=== PATIENT | female | born 1990 | race American Indian/Alaskan Native ===

== ENCOUNTER 2016-09-01 03:48 | Outpatient (CLI) | payer MEDICAID, MEDICARE ==
[2016-09-01 04:04] VITALS: BP 106/66
[2016-09-01] MEDS ORDERED: LACTATED RINGERS 1,000 ML IV ONE (04:25)
[2016-09-01 05:13] LABS: Bilirubin,Urine NEG (Negative); Blood,Urine NEG (Negative); Ketones,Urine NEG (Negative); Leukocyte Esterase,Urine NEG (Negative); Mucus,Urine FEW /HPF; Nitrite,Urine NEG (Negative); Protein,Urine <15 mg/dL mg/dL (Negative); Urobilinogen,Urine < 2.0 mg/dL (<2.0)
== END 2016-09-01 05:31 | disposition home or self-care (01) ==
LOC: TRG 03:48
PROVIDERS: ATTEND Obstetrics & Gynecology
DX: O47.02 False labor before 37 completed weeks of gestation, second trimester (principal); Z3A.27 27 weeks gestation of pregnancy
CPT/HCPCS: 81001

== ENCOUNTER 2016-09-02 11:24 | Outpatient (CLI) | payer MEDICAID, MEDICARE ==
[2016-09-02] MEDS ORDERED: LACTATED RINGERS 500 ML IV ONE (12:00)
[2016-09-02] MEDS ORDERED: BRETHINE SUB-Q SCH (12:00)
[2016-09-02 12:17] VITALS: BP 102/53
== END 2016-09-02 13:22 | disposition home or self-care (01) ==
LOC: TRG 11:24
PROVIDERS: ATTEND Obstetrics & Gynecology Gynecology
DX: O47.02 False labor before 37 completed weeks of gestation, second trimester (principal); Z3A.27 27 weeks gestation of pregnancy
CPT/HCPCS: 36415; 59025; 82731

== ENCOUNTER 2016-09-16 02:15 | Observation (INO) | payer MEDICAID, MEDICARE ==
[2016-09-16 03:23] LABS: Bacteria,Urine 1+ /HPF (Negative); Bilirubin,Urine NEG (Negative); Blood,Urine NEG (Negative); Ketones,Urine NEG (Negative); Leukocyte Esterase,Urine MOD (Negative); Mucus,Urine FEW /HPF; Nitrite,Urine NEG (Negative); Protein,Urine <15 mg/dL mg/dL (Negative)
--- NOTE | 2016-09-16 03:49 | History and Physical Report ---
History of Present Illness Date of examination: 09/16/16 Date of admission: 09/16/16 03:43 Chief complaint: Lower back pain and vaginal pressure History of present illness: 26-year-old at 29+5 weeks presents with above complaints and issues, she is [facility] patient. Essential history this patient with late presentation to care at about 25wks. She has been having low back pain for a while now. No vaginal bleeding, loss of fluid plus movement We are currently not picking up any contractions on the monitor, but patient does appear symptomatic for regular frequent low back pains. Vaginal ultrasound in triage has cervical length 1.8, breech presentation Past History Past Medical History: asthma (mild) Past Surgical History: no surgical history [employer] History: chlamydia (recent episode with negative test of cure). denies: gonorrhea, hepatitis B, hepatitis C, herpes, HIV, syphilis, trichomonas Social history: single, full code. denies: smoking, alcohol abuse, prescription drug abuse, IV drug use - Obstetrical History Expected Date of Delivery: 11/27/16 Actual Gestation: 29 Week(s) 5 Day(s) : 8 Para: 5 Hx # Term Pregnancies: 5 Medications and Allergies Allergies Allergy/AdvReac Type Severity Reaction Status Date / Time ibuprofen [From Advil] Allergy Swelling Verified 09/01/16 04:05 Home Medications Medication Instructions Recorded Confirmed Last Taken Type No Known Home Medications [No 09/02/16 09/02/16 Unknown History Reported Home Medications] Review of Systems Constitutional: no fever, no chills, no malaise, no chronic headaches, no chronic pain Cardiovascular: no chest pain, no orthopnea, no syncope, no lightheadedness, no shortness of breath, no dyspnea on exertion, no high blood pressure Respiratory: no cough with sputum, no excessive sputum, no shortness of breath, no dyspnea on exertion Gastrointestinal: abdominal pain (low back pain), no nausea, no vomiting, no heartburn, no indigestion, no dyspepsia/bloating Genitourinary: no vaginal bleeding, no vaginal discharge, no leakage of fluid Musculoskeletal: low back pain - Vital Signs Vital signs: Vital Signs Temp 98.2 F 09/16/16 02:59 Temp Pulse Resp BP Pulse Ox 98.2 F 09/16/16 02:59 - Physical Exam Cardiovascular: Regular rate, Normal S1, Normal S2 Lungs: Positive: Clear to auscultation, Normal air movement Abdomen: Positive: normal appearance, soft. Negative: distention, tenderness, guarding, rigidity Genitourinary (Female): Positive: normal external genitalia Uterus: Positive: enlarged (EFW ~ 2500). Negative: tender Adnexa: both: normal Extremities: Positive: normal - Obstetrical Cervical Dilatation: 1 (RN Exam) station: -3 Results All other labs normal. Assessment and Plan A: 26-year-old at 29+5 weeks with contractions -Cat 1 tracing Issues -AMA -Breech presentation -Late entry to care P: -Admit -Routine labs -FFN now -Consider Celestone if fibronectin positive -UDS -Magnesium per protocol at this time -Nothing by mouth for now -BPP and Growth later in AM -Consider MFM consult after FFN result available - Patient Problems (1) 29 to 30 weeks gestation of Current Visit: Yes Status: Acute (2) contractions Current Visit: Yes Status: Acute (3) Short cervical length during in third trimester Current Visit: Yes Status: Acute
[2016-09-16] MEDS ORDERED: COLACE PO PRN (03:55)
[2016-09-16] MEDS ORDERED: ZOFRAN IV PRN (03:55)
[2016-09-16] MEDS ORDERED: ALUM-MAG HYDROX-SIMETH 200-200-20MG/5ML PO PRN (03:55)
[2016-09-16] MEDS ORDERED: MAGNESIUM SULFATE 4GM/100ML 4 GM/100 ML BAG IV ONE (04:00)
[2016-09-16] MEDS ORDERED: D5LR 1,000 ML IV SCH (04:00)
[2016-09-16] MEDS ORDERED: LACTATED RINGERS 1,000 ML IV SCH (04:00)
[2016-09-16] MEDS ORDERED: MAGNESIUM SULFATE 40GM/1000ML 40 GM/1,000 ML BAG IV NR (04:00)
[2016-09-16] MEDS ORDERED: SUBLIMAZE IV ONE (04:55)
[2016-09-16 05:26] LABS: Basophils % (Auto) 0.4 % (0.0-1.8); Eosinophils % (Auto) 3.3 % (0.0-4.3); Hematocrit 24.1 % (30.3-42.9); Hemoglobin 7.7 gm/dl (10.1-14.3); Mean Corpuscular HGB Conc 32 % (30-34); Mean Corpuscular Volume 73 fl (79-97); Platelet Count 248 K/mm3 (140-440); Red Blood Count 3.29 M/mm3 (3.65-5.03); Red Cell Distribution Width 15.6 % (13.2-15.2); White Blood Count 6.6 K/mm3 (4.5-11.0)
[2016-09-16 05:48] LABS: Mean Corpuscular Hemoglobin 23 pg (28-32)
[2016-09-16 06:46] LABS: Urine Drugs of Abuse Note Disclamer
[2016-09-16] MEDS ORDERED: PRENATAL VITAMIN PO SCH (10:00)
[2016-09-16] MEDS ORDERED: FEOSOL PO SCH (10:00)
[2016-09-16] MEDS: TYLENOL PO PRN ×2 (10:46→16:37)
--- NOTE | 2016-09-16 10:58 | Progress Note ---
Assessment and Plan A: 26-year-old at 29+6 weeks with low back pain ?Ctx's -FFN negative Issues -Breech presentation -Late entry to care -BPP 11/07 (09/15/16) -Growth scan wnl (09/15/16) -On magnesium -Anemia (H/H ~ 11/23) P: -Urine culture now -Will discontinue magnesium at this time -No need for Celestone at this time -Start ferrous sulfate 325 mg twice a day -Regular diet -Encourage ambulation -Repeat cervical length later in the day with possible discharge - Patient Problems (1) 29 to 30 weeks gestation of Current Visit: Yes Status: Acute (2) contractions Current Visit: Yes Status: Acute (3) Short cervical length during in third trimester Current Visit: Yes Status: Acute (4) Anemia affecting in third trimester Current Visit: Yes Status: Acute Subjective - Subjective Date of service: 09/16/16 Principal diagnosis: IUP at 29+6 wks Interval history: Patient seen and examined, no issues overnight. She is still having low back pain which appears to recur in waves, cannot pick-up contraction on monitor. On exam, she has no flank tenderness, she has been afebrile. fibronectin is negative No vaginal bleeding, loss of fluid plus movement Her cervix is closed on digital exam Patient reports: new complaints, movement normal, no loss of fluid, no vaginal bleeding, no contractions Objective - Vital Signs Vital Signs: Vital Signs - 12hr 09/16/16 09/16/16 09/16/16 02:59 04:46 04:51 Temperature 98.2 F Pulse Rate 91 H 92 H Pulse Rate [ From Monitor] Respiratory Rate Blood Pressure Blood Pressure [Left Arm] O2 Sat by Pulse 98 98 Oximetry 09/16/16 09/16/16 09/16/16 04:56 04:57 05:01 Temperature Pulse Rate 102 H 88 94 H Pulse Rate [ 94 H From Monitor] Respiratory 18 Rate Blood Pressure 110/58 Blood Pressure 110/58 [Left Arm] O2 Sat by Pulse 100 98 98 Oximetry 09/16/16 09/16/16 09/16/16 05:06 05:11 05:14 Temperature Pulse Rate 106 H 114 H 94 H Pulse Rate [ From Monitor] Respiratory Rate Blood Pressure 100/55 Blood Pressure [Left Arm] O2 Sat by Pulse 99 99 Oximetry 09/16/16 09/16/16 09/16/16 05:16 05:18 05:21 Temperature Pulse Rate 84 91 H 91 H Pulse Rate [ From Monitor] Respiratory Rate Blood Pressure 90/54 Blood Pressure [Left Arm] O2 Sat by Pulse 100 89 98 Oximetry 09/16/16 09/16/16 09/16/16 05:26 05:31 05:36 Temperature Pulse Rate 93 H 97 H 80 Pulse Rate [ From Monitor] Respiratory Rate Blood Pressure 88/52 Blood Pressure [Left Arm] O2 Sat by Pulse 98 100 98 Oximetry 09/16/16 09/16/16 09/16/16 05:37 05:41 05:42 Temperature Pulse Rate 77 93 H 88 Pulse Rate [ From Monitor] Respiratory Rate Blood Pressure 97/57 95/57 Blood Pressure [Left Arm] O2 Sat by Pulse 99 Oximetry 09/16/16 09/16/16 09/16/16 05:46 05:47 05:51 Temperature Pulse Rate 88 83 101 H Pulse Rate [ From Monitor] Respiratory Rate Blood Pressure 94/60 Blood Pressure [Left Arm] O2 Sat by Pulse 100 100 Oximetry 09/16/16 09/16/16 09/16/16 05:52 05:56 05:57 Temperature 98.4 F Pulse Rate 96 H 80 77 Pulse Rate [ 78 From Monitor] Respiratory 16 Rate Blood Pressure 98/58 103/66 Blood Pressure 103/66 [Left Arm] O2 Sat by Pulse 100 100 Oximetry 09/16/16 09/16/16 09/16/16 06:01 06:02 06:06 Temperature Pulse Rate 77 74 79 Pulse Rate [ From Monitor] Respiratory Rate Blood Pressure 101/67 Blood Pressure [Left Arm] O2 Sat by Pulse 100 100 Oximetry 09/16/16 09/16/16 09/16/16 06:07 06:11 06:12 Temperature Pulse Rate 77 78 79 Pulse Rate [ From Monitor] Respiratory Rate Blood Pressure 107/66 106/64 Blood Pressure [Left Arm] O2 Sat by Pulse 100 Oximetry 09/16/16 09/16/16 09/16/16 06:16 06:17 06:21 Temperature Pulse Rate 78 82 83 Pulse Rate [ From Monitor] Respiratory Rate Blood Pressure 104/62 Blood Pressure [Left Arm] O2 Sat by Pulse 100 100 Oximetry 09/16/16 09/16/16 09/16/16 06:22 06:26 06:27 Temperature Pulse Rate 85 80 82 Pulse Rate [ From Monitor] Respiratory Rate Blood Pressure 103/61 111/67 Blood Pressure [Left Arm] O2 Sat by Pulse 100 Oximetry 09/16/16 09/16/16 09/16/16 06:31 06:32 06:36 Temperature Pulse Rate 80 80 73 Pulse Rate [ From Monitor] Respiratory Rate Blood Pressure 103/62 Blood Pressure [Left Arm] O2 Sat by Pulse 100 100 Oximetry 09/16/16 09/16/16 09/16/16 06:37 06:41 06:42 Temperature Pulse Rate 73 73 73 Pulse Rate [ From Monitor] Respiratory Rate Blood Pressure 97/59 101/60 Blood Pressure [Left Arm] O2 Sat by Pulse 100 Oximetry 09/16/16 09/16/16 09/16/16 06:46 06:47 06:51 Temperature Pulse Rate 75 75 74 Pulse Rate [ From Monitor] Respiratory Rate Blood Pressure 97/57 Blood Pressure [Left Arm] O2 Sat by Pulse 100 100 Oximetry 09/16/16 09/16/16 09/16/16 06:52 06:56 06:57 Temperature Pulse Rate 76 79 80 Pulse Rate [ From Monitor] Respiratory Rate Blood Pressure 98/58 97/60 Blood Pressure [Left Arm] O2 Sat by Pulse 100 Oximetry 09/16/16 09/16/16 09/16/16 07:01 07:02 07:06 Temperature Pulse Rate 82 79 82 Pulse Rate [ From Monitor] Respiratory Rate Blood Pressure 98/57 Blood Pressure [Left Arm] O2 Sat by Pulse 100 100 Oximetry 09/16/16 09/16/16 09/16/16 07:07 07:11 07:12 Temperature Pulse Rate 77 83 81 Pulse Rate [ From Monitor] Respiratory Rate Blood Pressure 99/55 107/61 Blood Pressure [Left Arm] O2 Sat by Pulse 100 Oximetry 09/16/16 09/16/16 09/16/16 07:16 07:17 07:21 Temperature Pulse Rate 82 81 84 Pulse Rate [ From Monitor] Respiratory Rate Blood Pressure 102/58 Blood Pressure [Left Arm] O2 Sat by Pulse 100 100 Oximetry 09/16/16 09/16/16 09/16/16 07:22 07:26 07:27 Temperature Pulse Rate 83 85 81 Pulse Rate [ From Monitor] Respiratory Rate Blood Pressure 101/59 97/56 Blood Pressure [Left Arm] O2 Sat by Pulse 100 Oximetry 09/16/16 09/16/16 09/16/16 07:31 07:32 07:36 Temperature Pulse Rate 77 80 80 Pulse Rate [ From Monitor] Respiratory Rate Blood Pressure 98/54 Blood Pressure [Left Arm] O2 Sat by Pulse 100 100 Oximetry 09/16/16 09/16/16 09/16/16 07:37 07:41 07:42 Temperature Pulse Rate 80 80 78 Pulse Rate [ From Monitor] Respiratory Rate Blood Pressure 98/54 101/61 Blood Pressure [Left Arm] O2 Sat by Pulse 100 Oximetry 09/16/16 09/16/16 09/16/16 07:46 07:47 07:50 Temperature Pulse Rate 95 H 81 96 H Pulse Rate [ From Monitor] Respiratory Rate Blood Pressure 105/61 Blood Pressure [Left Arm] O2 Sat by Pulse 98 91 Oximetry 09/16/16 09/16/16 09/16/16 07:51 07:52 07:54 Temperature Pulse Rate 86 87 85 Pulse Rate [ From Monitor] Respiratory Rate Blood Pressure 124/69 117/67 Blood Pressure [Left Arm] O2 Sat by Pulse 100 Oximetry 09/16/16 09/16/16 09/16/16 07:56 08:01 08:03 Temperature 97.2 F L Pulse Rate 100 H 85 Pulse Rate [ 86 From Monitor] Respiratory 22 Rate Blood Pressure Blood Pressure 117/67 [Left Arm] O2 Sat by Pulse 100 100 100 Oximetry 09/16/16 09/16/16 09/16/16 08:06 08:08 08:11 Temperature Pulse Rate 92 H 86 87 Pulse Rate [ From Monitor] Respiratory Rate Blood Pressure 146/84 Blood Pressure [Left Arm] O2 Sat by Pulse 100 100 Oximetry 09/16/16 09/16/16 09/16/16 08:12 08:17 08:22 Temperature Pulse Rate 79 80 75 Pulse Rate [ From Monitor] Respiratory Rate Blood Pressure 129/64 116/64 121/87 Blood Pressure [Left Arm] O2 Sat by Pulse Oximetry 09/16/16 09/16/16 09/16/16 08:27 08:32 08:38 Temperature Pulse Rate 77 78 87 Pulse Rate [ From Monitor] Respiratory Rate Blood Pressure 117/80 121/84 109/85 Blood Pressure [Left Arm] O2 Sat by Pulse Oximetry 09/16/16 09/16/16 09/16/16 08:42 08:47 08:52 Temperature Pulse Rate 80 85 82 Pulse Rate [ From Monitor] Respiratory Rate Blood Pressure 110/71 98/62 97/61 Blood Pressure [Left Arm] O2 Sat by Pulse Oximetry 09/16/16 09/16/16 09/16/16 08:57 09:02 09:07 Temperature Pulse Rate 84 83 87 Pulse Rate [ From Monitor] Respiratory Rate Blood Pressure 94/57 94/58 94/56 Blood Pressure [Left Arm] O2 Sat by Pulse Oximetry 09/16/16 09/16/16 09/16/16 09:12 09:17 10:03 Temperature Pulse Rate 90 105 H 101 H Pulse Rate [ From Monitor] Respiratory Rate Blood Pressure 94/55 92/56 104/66 Blood Pressure [Left Arm] O2 Sat by Pulse Oximetry 09/16/16 09/16/16 09/16/16 10:08 10:12 10:18 Temperature Pulse Rate 88 99 H 96 H Pulse Rate [ From Monitor] Respiratory Rate Blood Pressure 97/55 99/59 98/56 Blood Pressure [Left Arm] O2 Sat by Pulse Oximetry 09/16/16 09/16/16 09/16/16 10:23 10:28 10:33 Temperature Pulse Rate 89 83 89 Pulse Rate [ From Monitor] Respiratory Rate Blood Pressure 108/72 101/55 101/58 Blood Pressure [Left Arm] O2 Sat by Pulse Oximetry 09/16/16 09/16/16 10:39 10:43 Temperature Pulse Rate 86 91 H Pulse Rate [ From Monitor] Respiratory Rate Blood Pressure 104/62 104/59 Blood Pressure [Left Arm] O2 Sat by Pulse Oximetry - Exam Abdomen: Present: normal appearance, soft. Absent: distention, tenderness, guarding, rigidity Uterus: Present: normal. Absent: tenderness FHR: category 1 Cervical Dilatation: 0 - Labs Labs: Abnormal Labs 09/16/16 09/16/16 04:55 05:39 RBC 3.29 L Hgb 7.7 L Hct 24.1 L MCV 73 L MCH 23 L RDW 15.6 H Magnesium 3.50 H Laboratory Results - last 24 hr 09/16/16 09/16/16 09/16/16 03:35 04:55 05:02 WBC 6.6 RBC 3.29 L Hgb 7.7 L Hct 24.1 L MCV 73 L MCH 23 L MCHC 32 RDW 15.6 H Plt Count 248 Lymph % (Auto) 21.6 [place] % (Auto) 6.3 Eos % (Auto) 3.3 Baso % (Auto) 0.4 Lymph # 1.4 [place] # 0.4 Eos # 0.2 Baso # 0.0 Seg Neutrophils % 68.4 Seg Neutrophils # 4.5 Magnesium Urine Color Urine Turbidity Urine pH Ur Specific [place] Urine Protein Urine Glucose (UA) Urine Ketones Urine Blood Urine Nitrite Urine Bilirubin Urine Urobilinogen Ur Leukocyte Esterase Urine WBC (Auto) Urine RBC (Auto) U Epithel Cells (Auto) Urine Bacteria (Auto) Urine Mucus Urine Opiates Screen Urine Methadone Screen Ur Barbiturates Screen Ur Phencyclidine Scrn Ur Amphetamines Screen U Benzodiazepines Scrn Urine Cocaine Screen U Marijuana (THC) Screen Drugs of Abuse Note Fibronectin Negative Blood Type B POSITIVE Antibody Screen TNR MICA Antibody Screen Negative 09/16/16 09/16/16 09/16/16 05:39 06:30 Unknown WBC RBC Hgb Hct MCV MCH MCHC RDW Plt Count Lymph % (Auto) [place] % (Auto) Eos % (Auto) Baso % (Auto) Lymph # [place] # Eos # Baso # Seg Neutrophils % Seg Neutrophils # Magnesium 3.50 H Urine Color Yellow Urine Turbidity Clear Urine pH 6.0 Ur Specific [place] 1.014 Urine Protein <15 mg/dl Urine Glucose (UA) Neg Urine Ketones Neg Urine Blood Neg Urine Nitrite Neg Urine Bilirubin Neg Urine Urobilinogen 2.0 Ur Leukocyte Esterase Mod Urine WBC (Auto) 1.0 Urine RBC (Auto) 3.0 U Epithel Cells (Auto) 8.0 Urine Bacteria (Auto) 1+ Urine Mucus Few Urine Opiates Screen Presumptive negative Urine Methadone Screen Presumptive negative Ur Barbiturates Screen Presumptive negative Ur Phencyclidine Scrn Presumptive negative Ur Amphetamines Screen Presumptive negative U Benzodiazepines Scrn Presumptive negative Urine Cocaine Screen Presumptive negative U Marijuana (THC) Screen Presumptive negative Drugs of Abuse Note Disclamer Fibronectin Blood Type Antibody Screen MICA Antibody Screen
[2016-09-16 15:56] VITALS: BP 114/61
--- NOTE | 2016-09-16 17:47 | Event Note ---
Date: 09/16/16 She was seen and examined, stable doing well. No longer complaining of crampy low back pain. Repeat cervical length is 2.4, was previously 1.8 patient has an oral history of persistent BV, has a white discharge but no odor. Plan at this point is to discharge home. Will treat symptomatically for BV
--- NOTE | 2016-09-16 17:51 | Discharge Summary ---
Providers - Providers Date of Admission: 09/16/16 03:43 Date of discharge: 09/16/16 Attending physician: NUVIA ESCOTO Primary care physician: NUVIA ESCOTO Hospitalization Reason for admission: observation, other (low back pain and short cervical length) Discharge diagnosis: other (IUP at 29+6 weeks with short cervical length now improved, Anemia) Pertinent studies: BPP 8 out of 8 on 09/15/2016 Growth scan shows adequate growth 09/15/2016 Hospital course: C/O: Lower back pain and vaginal pressure 26-year-old at 29+5 weeks presents with above complaints and issues, she is [facility] patient. Essential history this patient with late presentation to care at about ~ 25wks. She has been having low back pain for a while now. No vaginal bleeding, loss of fluid plus movement We could not slat pickler any contractions on the monitor in triage, but patient does appear symptomatic for regular frequent low back pains. Vaginal ultrasound in triage has cervical length 1.8, breech presentation fibronectin was negative A: 26-year-old at 29+6 weeks with low back pain ?Ctx's -FFN negative Issues -Breech presentation -Late entry to care -BPP 8/8 (09/15/16) -Growth scan wnl (09/15/16) -s/p magnesium -Anemia (H/H ~ 11/23) Patient was admitted to the floor. She was started on magnesium. On exam she was closed No Celestone course was given since fibronectin was negative and cervix closed Repeat cervical length today (09/16/16) is 2.4 cm Discharge home today in stable condition. Advised follow-up with [facility] as planned next week Sunday Return to clinic/Hospital for increasing contractions vaginal bleeding or loss of fluid or decreased movement Condition at discharge: Good Disposition: DC-01 TO HOME OR SELFCARE - Discharge Diagnoses (1) 29 to 30 weeks gestation of Status: Acute (2) contractions Status: Acute (3) Short cervical length during in third trimester Status: Acute (4) Anemia affecting in third trimester Status: Acute Plan - Discharge Medications Prescriptions: Ferrous Sulfate [Feosol 325 MG tab] 325 mg PO BID #30 tablet metroNIDAZOLE [Flagyl] 500 mg PO Q12HR #14 tab - Provider Discharge Summary Activity: no sex for 6 weeks, no heavy lifting 4 weeks, no strenuous exercise Diet: routine Additional instructions: [] Smoking cessation referral if applicable(refer to patient education folder for contact #) [] Refer to [facility]'s [facility] Booklet Call your doctor immediately for: * Fever > 100.5 * Heavy vaginal bleeding ( >1 pad per hour) * Severe persistent headache * Shortness of breath * Reddened, hot, painful area to leg or breast * Drainage or odor from incision. * Keep incision clean and dry at all times and follow doctor's instructions regarding bathing/showering - Follow up plan Follow up: NUVIA ESCOTO MD [Primary Care Provider] - 7 Days DON MCKEON MD [Staff Physician] - 3 Days
[2016-09-16] MEDS ORDERED: FLAGYL 500 MG/100 ML 500 MG/100 ML BAG IV SCH (18:00)
--- NOTE | 2016-09-17 10:06 | Ultrasound Report ---
ULTRASOUND BIOPHYSICAL PROFILE: History: contraction, labor Technique: Transabdominal ultrasound with Doppler interrogation. 2 - breathing movements 2 - movements 2 - posture and tone 2 - Qualitative amniotic fluid volume 8 - TOTAL SCORE OF POSSIBLE 8 Heart Rate (bpm) 160
--- NOTE | 2016-09-17 10:06 | Ultrasound Report ---
ULTRASOUND OB LIMITED History: Evaluate cervical length, labor Technique: Transabdominal ultrasound with Doppler interrogation. Gestation: Single Position: Breech Heart Rate: 152 BPM Cervical length: 1.8 cm (Normal > 3 cm)
--- NOTE | 2016-09-17 10:08 | Ultrasound Report ---
ULTRASOUND OB LIMITED ULTRASOUND OB TRANSVAGINAL History: well being, reevaluate cervix Technique: Transabdominal ultrasound with Doppler interrogation. Gestation: Single Position: Breech Heart Rate: 150 BPM Cervical length: 2.4 cm (Normal > 3 cm)
== END 2016-09-16 20:30 | disposition home or self-care (01) ==
LOC: TRG 02:15 → LD 03:43
PROVIDERS: ADMIT Obstetrics & Gynecology Gynecology; ATTEND Obstetrics & Gynecology Gynecology
DX: O62.9 Abnormality of forces of labor, unspecified (principal); O26.873 Cervical shortening, third trimester; O99.513 Diseases of the respiratory system complicating pregnancy, third trimester; J45.909 Unspecified asthma, uncomplicated; O99.013 Anemia complicating pregnancy, third trimester; O26.893 Other specified pregnancy related conditions, third trimester; M54.5 Low back pain; Z3A.29 29 weeks gestation of pregnancy
CPT/HCPCS: 36415; 76815; 76817; 76819; 80307; 81001; 82731; 83735; 85025; 86850; 86900; 86901; 87086; 96361; 96365; 96375; G0378; J3010; J3475; J7120

== ENCOUNTER 2016-09-27 17:00 | Outpatient (CLI) | payer MEDICAID, MEDICARE ==
[2016-09-27] MEDS ORDERED: LACTATED RINGERS 500 ML IV ONE (18:00)
[2016-09-27 18:25] LABS: Bilirubin,Urine NEG (Negative); Blood,Urine NEG (Negative); Ketones,Urine NEG (Negative); Leukocyte Esterase,Urine NEG (Negative); Nitrite,Urine NEG (Negative); Protein,Urine <15 mg/dL mg/dL (Negative)
[2016-09-27 20:16] VITALS: BP 112/62
[2016-09-27] MEDS ORDERED: LACTATED RINGERS 1,000 ML ONE (21:24)
--- NOTE | 2016-09-28 07:55 | Ultrasound Report ---
ULTRASOUND OB LIMITED ULTRASOUND OB TRANSVAGINAL History: well being Technique: Transabdominal and transvaginal ultrasound with Doppler interrogation. Gestation: Single Position: Cephalic Heart Rate: 169 BPM Cervical length: 2.9 cm (Normal > 3 cm)
--- NOTE | 2016-09-28 07:56 | Ultrasound Report ---
ULTRASOUND BIOPHYSICAL PROFILE: History: well being Technique: Transabdominal ultrasound with Doppler interrogation. 2 - breathing movements 2 - movements 2 - posture and tone 2 - Qualitative amniotic fluid volume 8 - TOTAL SCORE OF POSSIBLE 8 Heart Rate (bpm) 169
== END 2016-09-28 00:35 | disposition home or self-care (01) ==
LOC: TRG 17:00 → LD 17:01 → TRG 22:42
PROVIDERS: ATTEND Obstetrics & Gynecology
DX: Z34.93 Encounter for supervision of normal pregnancy, unspecified, third trimester (principal); Z3A.31 31 weeks gestation of pregnancy
CPT/HCPCS: 36415; 76815; 76817; 76819; 81001; 82731; 96360; 96361; J7120

== ENCOUNTER 2016-10-05 22:38 | Outpatient (CLI) | payer MEDICAID, MEDICARE ==
[2016-10-05] MEDS ORDERED: LACTATED RINGERS 1,000 ML IV ONE (22:46)
[2016-10-05 23:04] VITALS: BP 126/66
[2016-10-05 23:39] LABS: Bacteria,Urine 1+ /HPF (Negative); Bilirubin,Urine NEG (Negative); Blood,Urine NEG (Negative); Ketones,Urine NEG (Negative); Leukocyte Esterase,Urine SM (Negative); Mucus,Urine FEW /HPF; Nitrite,Urine NEG (Negative); Protein,Urine <15 mg/dL mg/dL (Negative); Urobilinogen,Urine < 2.0 mg/dL (<2.0)
[2016-10-05] MEDS ORDERED: REGLAN IV ONE (23:58)
[2016-10-05] MEDS ORDERED: ZOFRAN IV ONE (23:58)
== END 2016-10-06 00:53 | disposition home or self-care (01) ==
LOC: TRG 22:38
PROVIDERS: ATTEND Obstetrics & Gynecology
DX: O47.02 False labor before 37 completed weeks of gestation, second trimester (principal); Z3A.32 32 weeks gestation of pregnancy
CPT/HCPCS: 59025; 81001; 96360; 96361; 96374; 96375; J2405; J2765; J7120

== ENCOUNTER 2016-10-09 09:15 | Outpatient (CLI) | payer MEDICAID, MEDICARE ==
[2016-10-09] MEDS ORDERED: LACTATED RINGERS 500 ML IV ONE (09:25)
[2016-10-09 09:51] LABS: Bilirubin,Urine NEG (Negative); Blood,Urine NEG (Negative); Ketones,Urine NEG (Negative); Leukocyte Esterase,Urine NEG (Negative); Nitrite,Urine NEG (Negative); Protein,Urine <15 mg/dL mg/dL (Negative); RBC,Urine < 1.0 /HPF (0.0-6.0); Urobilinogen,Urine < 2.0 mg/dL (<2.0)
[2016-10-09 10:11] LABS: WBC,Urine < 1.0 /HPF (0.0-6.0)
[2016-10-09] MEDS ORDERED: LACTATED RINGERS 1,000 ML ONE (12:04)
[2016-10-09] MEDS ORDERED: TYLENOL PO ONE (13:07)
[2016-10-09] MEDS ORDERED: NORCO 5/325 PO ONE (13:29)
[2016-10-09 14:26] VITALS: BP 114/75
== END 2016-10-09 15:00 | disposition home or self-care (01) ==
LOC: TRG 09:15
PROVIDERS: ATTEND Obstetrics & Gynecology
DX: O47.03 False labor before 37 completed weeks of gestation, third trimester (principal); Z3A.33 33 weeks gestation of pregnancy
CPT/HCPCS: 36415; 59025; 81001; 82731; 96360; J7120

== ENCOUNTER 2016-10-15 16:33 | Outpatient (CLI) | payer MEDICAID, MEDICARE ==
[2016-10-15 16:47] VITALS: BP 111/78
--- NOTE | 2016-10-16 07:57 | Ultrasound Report ---
ULTRASOUND OB LIMITED History: Rupture of membranes Technique: Transabdominal ultrasound with Doppler interrogation. Gestation: Single Position: Transverse with head to maternal right. Feet are presenting at the cervix. Amniotic Fluid: Normal RANDY = 11.2 cm Heart Rate: 153 BPM
--- NOTE | 2016-10-16 07:57 | Ultrasound Report ---
ULTRASOUND BIOPHYSICAL PROFILE: History: Decreased movement, rupture of membranes Technique: Transabdominal ultrasound with Doppler interrogation. 2 - breathing movements 2 - movements 2 - posture and tone 2 - Qualitative amniotic fluid volume 8 - TOTAL SCORE OF POSSIBLE 8 Heart Rate (bpm) 148
== END 2016-10-15 18:45 | disposition home or self-care (01) ==
LOC: TRG 16:33
PROVIDERS: ATTEND Obstetrics & Gynecology
DX: O36.8130 Decreased fetal movements, third trimester, not applicable or unspecified (principal); O42.92 Full-term premature rupture of membranes, unspecified as to length of time between rupture and onset of labor; O47.03 False labor before 37 completed weeks of gestation, third trimester; Z3A.33 33 weeks gestation of pregnancy
CPT/HCPCS: 59025; 76815; 76819

== ENCOUNTER 2016-10-18 20:08 | Outpatient (CLI) | payer MEDICAID, MEDICARE ==
[2016-10-18 20:32] VITALS: BP 118/77
[2016-10-18] MEDS ORDERED: LACTATED RINGERS 1,000 ML IV ONE (21:00)
[2016-10-18 21:26] LABS: Bilirubin,Urine NEG (Negative); Blood,Urine NEG (Negative); Ketones,Urine NEG (Negative); Leukocyte Esterase,Urine NEG (Negative); Nitrite,Urine NEG (Negative); Protein,Urine <15 mg/dL mg/dL (Negative); Urobilinogen,Urine < 2.0 mg/dL (<2.0)
== END 2016-10-18 21:50 | disposition home or self-care (01) ==
LOC: TRG 20:08 → LD 20:22 → TRG 21:50
PROVIDERS: ATTEND Obstetrics & Gynecology
DX: O47.03 False labor before 37 completed weeks of gestation, third trimester (principal); Z3A.34 34 weeks gestation of pregnancy
CPT/HCPCS: 81001; 96360; J7120

== ENCOUNTER 2016-10-22 11:45 | Outpatient (CLI) | payer MEDICAID, MEDICARE ==
[2016-10-22] MEDS ORDERED: LACTATED RINGERS 500 ML IV ONE ×2 (12:04→14:11)
[2016-10-22] MEDS ORDERED: SUBLIMAZE IV ONE (13:02)
[2016-10-22 13:42] LABS: Hematocrit 22.9 % (30.3-42.9); Mean Corpuscular HGB Conc 31 % (30-34); Mean Corpuscular Hemoglobin 22 pg (28-32); Mean Corpuscular Volume 71 fl (79-97); Platelet Count 201 K/mm3 (140-440); Red Blood Count 3.23 M/mm3 (3.65-5.03); Red Cell Distribution Width 17.1 % (13.2-15.2); White Blood Count 6.1 K/mm3 (4.5-11.0)
[2016-10-22 13:51] LABS: Bilirubin,Urine NEG (Negative); Blood,Urine NEG (Negative); Ketones,Urine NEG (Negative); Leukocyte Esterase,Urine NEG (Negative); Nitrite,Urine NEG (Negative); Protein,Urine <15 mg/dL mg/dL (Negative); Urobilinogen,Urine < 2.0 mg/dL (<2.0); WBC,Urine < 1.0 /HPF (0.0-6.0)
[2016-10-22 14:07] LABS: Alanine Aminotransferase 8 units/L (7-56)
[2016-10-22] MEDS: BRETHINE SUB-Q SCH ×2 (14:17→14:51)
[2016-10-22 14:30] LABS: Lactate Dehydrogenase 176 units/L (91-180); Uric Acid 4.5 mg/dL (3.5-7.6)
[2016-10-22] MEDS ORDERED: VISTARIL PO PRN (15:11)
[2016-10-22 15:16] VITALS: BP 85/53
== END 2016-10-22 15:40 | disposition home or self-care (01) ==
LOC: TRG 11:45
PROVIDERS: ATTEND Obstetrics & Gynecology
DX: O47.03 False labor before 37 completed weeks of gestation, third trimester (principal); Z3A.34 34 weeks gestation of pregnancy
CPT/HCPCS: 36415; 59025; 81001; 82565; 83615; 84450; 84460; 84550; 85027; 96360; 96361; 96372; J3010; J3105; J7120; Q0177

== ENCOUNTER 2016-10-22 21:19 | Outpatient (CLI) | payer MEDICAID, MEDICARE ==
[2016-10-22] MEDS ORDERED: LACTATED RINGERS 1,000 ML IV SCH (23:00)
[2016-10-22] MEDS ORDERED: PROCARDIA*For Tocolysis only PO ONE ×2 (23:33→23:44)
[2016-10-24 22:16] VITALS: BP 139/83
== END 2016-10-23 00:03 | disposition home or self-care (01) ==
LOC: TRG 21:19
PROVIDERS: ATTEND Obstetrics & Gynecology
DX: O47.03 False labor before 37 completed weeks of gestation, third trimester (principal); Z3A.34 34 weeks gestation of pregnancy
CPT/HCPCS: 96360; J7120

== ENCOUNTER 2016-12-07 06:32 | Day surgery (SDC) | payer MEDICAID, MEDICARE ==
[~2016-12-07 06:32] MED LIST: MARCAINE 0.5% INFILTRATI ONE; NACL 0.9% IR ONE
[2016-12-07] MEDS ORDERED: NACL BACTERIOSTATIC INFILTRATI ONE (07:12)
[2016-12-07] MEDS ORDERED: DILAUDID ONE ×2 (07:13→09:59)
[2016-12-07] MEDS ORDERED: DIPRIVAN 10 MG/ML IV ONE (07:14)
[2016-12-07] MEDS ORDERED: ZEMURON IV ONE (07:14)
[2016-12-07] MEDS ORDERED: ZOFRAN ONE (07:14)
[2016-12-07] MEDS ORDERED: DECADRON ONE (07:14)
[2016-12-07] MEDS ORDERED: XYLOCAINE MPF 2% ONE (07:15)
[2016-12-07 07:50] LABS: Hematocrit 31.7 % (30.3-42.9); Hemoglobin 9.8 gm/dl (10.1-14.3)
--- NOTE | 2016-12-07 08:02 | Anesthesia Consultation ---
Anesthesia Consult and Med Hx Date of service: 12/07/16 - Airway Anesthetic Teeth Evaluation: Poor (#9 chipped) ROM Head & Neck: Adequate Mental/Hyoid Distance: Adequate Mallampati Class: Class II Intubation Access Assessment: Probably Good - Pulmonary Exam CTA: Yes - Cardiac Exam Cardiac Exam: RRR - Pre-Operative Health Status ASA Pre-Surgery Classification: ASA2 Proposed Anesthetic Plan: General (no previous anesthesia problems) - Pulmonary Hx Asthma: Yes (last used inhaler 7 mos ago) COPD: No Hx Pneumonia: No Hx Sleep Apnea: Yes ("mild" No CPAP) - Cardiovascular System Hx Hypertension: Yes - Central Nervous System Hx Seizures: No Hx Psychiatric Problems: Yes - Endocrine Hx Renal Disease: No Hx End Stage Renal Disease: No Hx Hypothyroidism: No Hx Hyperthyroidism: No - Hematic Hx Anemia: Yes (6 wks post-- no longer nursing) Hx Sickle Cell Disease: No - Other Systems Hx Alcohol Use: Yes (occas) Hx Cancer: No
[2016-12-07] MEDS ORDERED: PEPCID IV NR (08:05)
[2016-12-07] MEDS ORDERED: VERSED IV NR (08:05)
[2016-12-07] MEDS ORDERED: NACL 0.9% 1000 ML 1,000 ML IV SCH (08:05)
--- NOTE | 2016-12-07 08:09 | Anesthesia Day of Surgery ---
Anesthesia Day of Surgery - Day of Surgery Patient Examined: Yes Patient H&P Reviewed: Yes Patient is NPO: Yes
[2016-12-07] MEDS ORDERED: MARCAINE 0.5% 30 ML INFILTRATI ONE (08:23)
[2016-12-07] MEDS ORDERED: MARCAINE 0.5% INFILTRATI ONE (09:16)
[2016-12-07] MEDS ORDERED: NACL 0.9% IR ONE (09:20)
--- NOTE | 2016-12-07 09:34 | Operative Report ---
Operative Report Operative Report: PREOPERATIVE DIAGNOSIS: Desires permanent sterilization. POSTOPERATIVE DIAGNOSIS: Desires permanent sterilization. PROCEDURE: Laparoscopic tubal ligation, Filshe clips SURGEON: Dr. Yanelis Cote MD ANESTHESIA: General. ESTIMATED BLOOD LOSS: 10 mL. COMPLICATIONS: None. INDICATIONS FOR SURGERY: A 26-year-old female, G6 who desires permanent sterilization. The risks of bleeding, infection, damage to other organs, and subsequent ectopic was explained. Informed consent was obtained. OPERATIVE FINDINGS: Normal appearing uterus and adnexa bilaterally. DESCRIPTION OF PROCEDURE: After administration of general anesthesia, the patient was placed in the dorsal lithotomy position, and prepped and draped in the usual sterile fashion. The speculum was placed in the vagina, the cervix was grasped with the tenaculum, and a uterine manipulator inserted. This area was then draped off the remainder of the operative field. A 5-mm incision was made umbilically A Veress needle was inserted to confirm an opening pressure of 2 mmHg. Approximately 4 liters of CO2 gas was insufflated into the abdominal cavity. The Veress needle was removed, and a 5- mm port placed. Position was confirmed using a laparoscope. A second port was placed under direct visualization, 3 fingerbreadths suprapubically, 7 mm in diameter. This was done under direct visualization. The pelvic cavity was examined with the findings as noted above. The Filshe clips were then applied to each tube bilaterally. Good segments were noted to be ligated. The accessory port was removed. The abdomen was deflated. The laparoscope and sheath was removed. The skin edges were approximated with 5-0 Monocryl suture in subcuticular fashion.Dermabond used for approximation of edges. Injection of .25% marcaine injected into each incision,. The instruments were removed from the vagina. The patient was returned to the supine position, recalled from anesthesia, and transferred to the recovery room in satisfactory condition. Sponge and needle counts correct at the conclusion of the case. Estimated blood loss was minimal.
[2016-12-07] MEDS ORDERED: NEOSTIGMINE ONE (09:43)
[2016-12-07] MEDS ORDERED: ROBINUL ONE (09:43)
[2016-12-07] MEDS ORDERED: ZOFRAN IV PRN (09:54)
[2016-12-07] MEDS: DILAUDID IV PRN ×2 (09:55→10:05)
[2016-12-07] MEDS ORDERED: PERCOCET 5/325 PO ONE (11:15)
[2016-12-07 15:20] VITALS: BP 126/88
== END 2016-12-07 12:12 | disposition home or self-care (01) ==
LOC: OR 06:32
PROVIDERS: ATTEND Obstetrics & Gynecology
DX: Z30.2 Encounter for sterilization (principal); J45.909 Unspecified asthma, uncomplicated; I10 Essential (primary) hypertension; D64.9 Anemia, unspecified; Z72.89 Other problems related to lifestyle; Z88.8 Allergy status to other drugs, medicaments and biological substances; Z79.899 Other long term (current) drug therapy
CPT/HCPCS: 36415; 58671; 81025; 85014; 85018; J1100; J1170; J2250; J2405; J2704; J2710; J7030